=== PATIENT | male | born 1990 | race Hispanic/Latino ===

== ENCOUNTER 2018-08-25 04:00 | Inpatient (IN) | payer OTHER ==
[2018-08-25 04:03] VITALS: BMI 27.0
--- NOTE | 2018-08-25 04:21 | ED PDOC ---
Arrival/HPI - General Chief Complaint: Psychiatric Evaluation Time Seen by Provider: 08/25/18 04:17 Historian: Patient - History of Present Illness Narrative History of Present Illness (Text): 08/25/18 04:20 Gilmar Segundo is a 27 year old male, whose past medical history includes depression and bipolar disorder, who presents to the Emergency department complaining of depression. Patient states he has been feeling depressed recently and has been having thoughts of harming himself. Patient states he would jump off a building. Patient also received stitches while in [place] and noted some redness to the area. Patient denies any fever, chills, chest pain, shortness of breath, nausea, vomiting, diarrhea, urinary symptoms, back pain, neck pain, headache, dizziness, or any other complaints. Symptom Onset: Gradual Symptom Course: Unchanged Activities at Onset: Light Context: Home Past Medical History - Provider Review Nursing Documentation Reviewed: Yes - Cardiac Hx Cardiac Disorders: No Hx Hypertension: No - Pulmonary Hx Tuberculosis: No - Neurological HX Cerebrovascular Accident: No Hx Seizures: No - Hematological/Oncological Hx Cancer: No - Genitourinary/Gynecological Hx Sexually Transmitted Diseases: No - Psychiatric Hx Bipolar Disorder: Yes Hx Substance Use: No Family/Social History - Physician Review Nursing Documentation Reviewed: Yes Family/Social History: Unknown Family HX Smoking Status: Unknown If Ever Smoked Hx Alcohol Use: No Hx Substance Use: No Allergies/Home Meds Allergies/Adverse Reactions: Allergies divalproex sodium [From Depakote] Allergy (Verified 08/25/18 04:04) RASH Home Medications: Home Meds Medication Instructions Recorded Confirmed Eunola Carbonate ER Tab [Eunola 450 mg PO Q12H 08/25/18 08/25/18 Carbonate] Quetiapine Fumarate [Seroquel] 100 mg PO HS 08/25/18 08/25/18 Review of Systems - Physician Review All systems were reviewed & negative as marked: Yes - Review of Systems Constitutional: Normal Eyes: Normal ENT: Normal Respiratory: Normal. absent: SOB, Cough Cardiovascular: Normal. absent: Chest Pain Gastrointestinal: Normal. absent: Abdominal Pain, Diarrhea, Nausea, Vomiting Genitourinary Male: Normal Musculoskeletal: Normal Skin: Cellulitis Neurological: Normal Endocrine: Normal Hemo/Lymphatic: Normal Psychiatric: Depression, Suicidal Ideation Physical Exam Vital Signs Reviewed: Yes Temperature: Afebrile Blood Pressure: Normal Pulse: Regular Respiratory Rate: Normal Appearance: Positive for: Well-Appearing, Non-Toxic, Comfortable Pain Distress: None Mental Status: Positive for: Alert and Oriented X 3 - Systems Exam Head: Present: Atraumatic, Normocephalic Pupils: Present: PERRL Extroacular Muscles: Present: EOMI Conjunctiva: Present: Normal Mouth: Present: Moist Mucous Membranes Neck: Present: Normal Range of Motion Respiratory/Chest: Present: Clear to Auscultation, Good Air Exchange. No: Respiratory Distress, Accessory Muscle Use Cardiovascular: Present: Regular Rate and Rhythm, Normal S1, S2. No: Murmurs Abdomen: No: Tenderness, Distention, Peritoneal Signs Back: Present: Normal Inspection Upper Extremity: Present: Normal ROM, NORMAL PULSES, Erythema (Newly placed stitches placed in right hand with erythema around the area, no discharge, no swelling noted), Neurovascularly Intact, Capillary Refill < 2s. No: Cyanosis, Edema, Tenderness, Swelling, Temperature Abnormalties, Deformity Lower Extremity: Present: Normal Inspection. No: Edema Neurological: Present: GCS=15, CN II-XII Intact, Speech Normal Skin: Present: Warm, Dry, Normal Color. No: Rashes Psychiatric: Present: Alert, Oriented x 3, Normal Insight, Normal Concentration Medical Decision Making ED Course and Treatment: 08/25/18 04:20 Impression: 27 year old male complaining of depression and suicidal ideation. Plan: -- EKG -- Chest X-ray -- Labs, alcohol level -- Urine drug screen -- Reassess and disposition Prior Visits: Notes and results from previous visits were reviewed. Progress Notes: Reviewed EKG, NSR at [address]-segment elevations or depressions, no T-wave inversions, normal intervals. 08/25/18 05:54 Case discussed with vice president education, present in Emergency department to evaluate pt. 08/25/18 06:11 Chest X-ray reviewed, shows no acute processes. 08/25/18 07:[address] Casterjon, pending medical clearance,surgical evaluation, PES evaluation, and disposition. Pt resting comfortable, in no acute distress. - Lab Interpretations I have reviewed the lab results: Yes - RAD Interpretation Radiology Orders: 08/25/18 04:18 CHEST PORTABLE [RAD] Stat Produce Inspector: ED Physician - EKG Interpretation Interpreted by ED Physician: Yes Type: 12 lead EKG - Scribe Statement The provider has reviewed the documentation as recorded by the Jennaibe Aisha Sinha Provider Scribe Attestation: All medical record entries made by the Scribe were at my direction and personally dictated by me. I have reviewed the chart and agree that the record accurately reflects my personal performance of the history, physical exam, medical decision making, and the department course for this patient. I have also personally directed, reviewed, and agree with the discharge instructions and disposition. Disposition/Present on Arrival - Present on Arrival Any Indicators Present on Arrival: No History of DVT/PE: No History of Uncontrolled Diabetes: No Urinary Catheter: No History Surgical Site Infection Following: None - Disposition Have Diagnosis and Disposition been Completed?: No Diagnosis: Depression, Suicidal ideation Disposition Time: 07:00 Patient Problems: Current Active Problems Problem Status Onset Depression Acute Suicidal ideation Acute Condition: STABLE Forms: [employer] (Wolof)
[2018-08-25 04:39] LABS: MEAN CELL VOLUME 83.7 fl (80.0-105.0); MEAN CORPUSCULAR HEMOGLOBIN 29.2 pg (25.0-35.0); MEAN CORPUSCULAR HGB CONC 34.9 g/dl (31.0-37.0); MEAN PLATELET VOLUME 11.8 fl (7.0-11.0); RBC 5.14 10^6/uL (3.5-6.1); WHITE BLOOD COUNT 9.1 10^3/ul (4.5-11.0)
[2018-08-25 04:44] LABS: ALB/GLOB RATIO 1.5 (1.1-1.8); ALBUMIN 4.2 g/dL (3.0-4.8); ALT/SGPT 23 U/L (7-56); AST/SGOT 29 U/L (17-59); BLOOD UREA NITROGEN 13 mg/dL (7-21); CALCIUM 9.1 mg/dL (8.4-10.5); GFR NON-AFRICAN AMERICAN > 60
--- NOTE | 2018-08-25 05:58 | CP.PCM.CON ---
History of Present Illness - History of Present Illness History of Present Illness: General surgery consult note for Dr. Moreno consulted for left hand HPI: patient is a 27 yr old male with PMH depression and bipolar disorder who presented to [facility] ED for depression. During his stay it was noticed that he had stitches on his right hand posterior head, left chin and left scapular area. Patient denies any fever, chills, chest pain, shortness of breath, nausea, vomiting, diarrhea, urinary symptoms, back pain, neck pain, headache, dizziness, or any other complaints. Past Patient History - Past Social History Smoking Status: Unknown If Ever Smoked - CARDIAC Hx Cardiac Disorders: No Hx Hypertension: No - PULMONARY Hx Tuberculosis: No - NEUROLOGICAL HX Cerebrovascular Accident: No Hx Seizures: No - HEMATOLOGICAL/ONCOLOGICAL Hx Cancer: No - INTEGUMENTARY Hx Dermatological Problems: Yes - GENITOURINARY/GYNECOLOGICAL Hx Sexually Transmitted Disorders: No - PSYCHIATRIC Hx Bipolar Disorder: Yes Hx Substance Use: No - SURGICAL HISTORY Hx Surgeries: No - ANESTHESIA Hx Anesthesia: No Meds Allergies/Adverse Reactions: Allergies Allergy/AdvReac Type Severity Reaction Status Date / Time divalproex sodium Allergy RASH Verified 08/25/18 04:04 [From Depakote] - Medications Medications: Current Medications Cephalexin Monohydrate (Keflex) 500 mg PO ONCE STA; Protocol Stop: 08/25/18 05:56 Results - Labs Result Diagrams: 08/25/18 04:22 08/25/18 04:22 Labs: Laboratory Results - last 24 hr 08/25/18 08/25/18 08/25/18 04:22 04:22 04:22 WBC 9.1 D RBC 5.14 Hgb 15.0 Hct 43.0 MCV 83.7 MCH 29.2 MCHC 34.9 RDW 14.0 Plt Count 146 MPV 11.8 H Sodium 141 Potassium 3.7 Chloride 107 Carbon Dioxide 24 Anion Gap 14 BUN 13 Creatinine 1.0 Est GFR ( Amer) > 60 Est GFR (Non-Af Amer) > 60 Random Glucose 132 H Calcium 9.1 Total Bilirubin 0.6 AST 29 ALT 23 Alkaline Phosphatase 48 Total Protein 7.0 Albumin 4.2 Globulin 2.7 Albumin/Globulin Ratio 1.5 Alcohol, Quantitative < 10
[2018-08-25 06:33] LABS: URINE BILIRUBIN NEGATIVE (NEGATIVE); URINE BLOOD NEGATIVE (NEGATIVE); URINE GLUCOSE (UA) NEGATIVE (NEGATIVE); URINE LEUKOCYTE ESTERASE NEGATIVE Leu/uL (NEGATIVE); URINE PROTEIN TRACE mg/dL (<30 mg/dL)
[2018-08-25 06:45] LABS: URINE APPEARANCE CLEAR (CLEAR); URINE COLOR YELLOW (YELLOW)
[2018-08-25 06:57] LABS: URINE EPITHELIAL CELLS 0 - 2 /hpf (0-5); URINE RBC 0 - 2 /hpf (0-2); URINE WBC 0 - 2 /hpf (0-6)
[2018-08-25 07:14] LABS: BARBITURATES, UR NEGATIVE (NEGATIVE); BENZODIAZEPINES, UR NEGATIVE (NEGATIVE); OPIATES, UR NEGATIVE (NEGATIVE); PHENCYCLIDINE, UR NEGATIVE (NEGATIVE)
--- NOTE | 2018-08-25 07:26 | ED PDOC ---
Medical Decision Making ED Course and Treatment: 08/25/18 07:00 Case endorsed to me by Dr. Scott, pending medical clearance, PES evaluation, and disposition. Pt resting comfortable, in no acute distress. 08/25/18 11:06 i have personally seen and examined this patient at bedside. there is no purulence or significant swelling of the dorsum of the hand. there is mild redness along the suture line. patient states that the sutures were placed yesterday (08.24.2018). at this time i do not feel emergent hand consultation is indicated. however with the mild redness along the wound i agree that empiric antibiotics are indicated. any progression of symptoms should warrant escalation of care and consideration for hand consultation. 08/25/18 14:26 received delayed notice that patient is accepted for voluntary admission to [facility]. hand consult accepted by dr. rivera. case discussed with rn surgical pcu, will come to ED for evaluation. - Lab Interpretations Lab Results: 08/25/18 04:22 08/25/18 04:22 Lab Results 08/25/18 05:40: Urine Color Yellow, Urine Appearance Clear, Urine pH 6.0, Ur Specific [place] >= 1.030, Urine Protein Trace H, Urine Glucose (UA) Negative, Urine Ketones Negative, Urine Blood Negative, Urine Nitrate Negative, Urine Bilirubin Negative, Urine Urobilinogen 1.0 H, Ur Leukocyte Esterase Negative, Urine RBC 0 - 2, Urine WBC 0 - 2, Ur Epithelial Cells 0 - 2, Urine Other Mucus 08/25/18 05:40: Urine Opiates Screen Negative, Urine Methadone Screen Negative, Ur Barbiturates Screen Negative, Ur Phencyclidine Scrn Negative, Ur Amphetamines Screen Negative, U Benzodiazepines Scrn Negative, U Oth Cocaine Metabols Negative, U Cannabinoids Screen Negative 08/25/18 04:22: Sodium 141, Potassium 3.7, Chloride 107, Carbon Dioxide 24, Anion Gap 14, BUN 13, Creatinine 1.0, Est GFR ( Amer) > 60, Est GFR (Non- Af Amer) > 60, Random Glucose 132 H, Calcium 9.1, Total Bilirubin 0.6, AST 29, ALT 23, Alkaline Phosphatase 48, Total Protein 7.0, Albumin 4.2, Globulin 2.7, Albumin/Globulin Ratio 1.5 08/25/18 04:22: WBC 9.1 D, RBC 5.14, Hgb 15.0, Hct 43.0, MCV 83.7, MCH 29.2, MCHC 34.9, RDW 14.0, Plt Count 146, MPV 11.8 H 08/25/18 04:22: Alcohol, Quantitative < 10 - RAD Interpretation Narrative RAD Interpretations (Text): 08/25/18 09:33 XR Right hand FINDINGS: BONES: Bone alignment and mineralization are normal. There is no acute displaced fracture or bone destruction. JOINTS: Normal. No osteoarthritic changes. SOFT TISSUES: Normal. OTHER FINDINGS: None. IMPRESSION: No acute fracture, dislocation or bone destruction. Radiology Orders: 08/25/18 04:18 CHEST PORTABLE [RAD] Stat 08/25/18 05:31 HAND RIGHT 3 VIEWS [RAD] Stat - Medication Orders Current Medication Orders: Discontinued Medications Cephalexin Monohydrate (Keflex) 500 mg PO ONCE STA; Protocol Stop: 08/25/18 05:56 Last Admin: 08/25/18 06:52 Dose: 500 mg - Scribe Statement The provider has reviewed the documentation as recorded by the Qing Nazario Provider Scribe Attestation: All medical record entries made by the Qing were at my direction and personally dictated by me. I have reviewed the chart and agree that the record accurately reflects my personal performance of the history, physical exam, medical decision making, and the department course for this patient. I have also personally directed, reviewed, and agree with the discharge instructions and disposition. Disposition/Present on Arrival - Present on Arrival Any Indicators Present on Arrival: No History of DVT/PE: No History of Uncontrolled Diabetes: No Urinary Catheter: No History of Decub. Ulcer: No History Surgical Site Infection Following: None - Disposition Have Diagnosis and Disposition been Completed?: Yes Diagnosis: Depression, Suicidal ideation, Bipolar disorder Disposition: HOSPITALIZED Disposition Time: 14:27 Patient Plan: Admission Patient Problems: Current Active Problems Problem Status Onset Depression Acute Suicidal ideation Acute Condition: STABLE Forms: [employer] ([place]ralt[place])
[2018-08-25 07:48] VITALS: O2SAT 98
--- NOTE | 2018-08-25 08:25 | RAD ---
Date of service: 08/25/2018 HISTORY: medical clearance COMPARISON: 03/23/2016 FINDINGS: LUNGS: No active pulmonary disease. PLEURA: No significant pleural effusion identified, no pneumothorax apparent. CARDIOVASCULAR: Normal. OSSEOUS STRUCTURES: No significant abnormalities. VISUALIZED UPPER ABDOMEN: Normal. OTHER FINDINGS: None. IMPRESSION: No active disease.
--- NOTE | 2018-08-25 09:14 | RAD ---
PROCEDURE: Right Hand Radiographs. HISTORY: Hand wound COMPARISON: None. FINDINGS: BONES: Bone alignment and mineralization are normal. There is no acute displaced fracture or bone destruction. JOINTS: Normal. No osteoarthritic changes. SOFT TISSUES: Normal. OTHER FINDINGS: None. IMPRESSION: No acute fracture, dislocation or bone destruction.
--- NOTE | 2018-08-25 11:49 | CARD ---
APPROVED REPORT Date of service: 08/25/2018 EKG Measurement Heart [id number] <Conclusion> Normal sinus rhythm Normal ECG
[2018-08-25] MEDS ORDERED: Vancomycin 1gm in NS 250ml 1 GM/250 ML BAG IVPB SCH (16:15)
--- NOTE | 2018-08-25 16:44 | CP.PCM.CON ---
History of Present Illness - History of Present Illness History of Present Illness: Consult note for Hand Surgery for Dr. Sweeney CC: Hand laceration evaluation HPI: Mr. Villarreal is a 27 y/o male with PMH of depression and bipolar disorder presenting to the ER for suicidal ideation. Hand surgery was consulted for ranjan villatoro of hand laceration. Patient states that he had the laceration from a glass edge yesterday for which he received stitches, done at [facility]. He indicates that he received TdAP booster, but denies receiving any antibiotics. He admits to having pain along his fingers and laceration when he closes his hand. He denies numbness, tingling, loss of sensation, and weakness in his the fingers. He also denies fevers, fatigue, chills, shortness of breath, nausea, and vomiting. SocHx: denies alcohol and illicit drug use. unknown smoking hx. PMHx: depression, bipolar Allergies: Divalproex sodium Hosptilizations: Stitches in [place] 08/24/18 FamHx: non-contributory Review of Systems - Review of Systems Review of Systems: 10 pt ROS negative except as stated in HPI Past Patient History - Past Social History Smoking Status: Unknown If Ever Smoked - CARDIAC Hx Cardiac Disorders: No Hx Hypertension: No - PULMONARY Hx Tuberculosis: No - NEUROLOGICAL HX Cerebrovascular Accident: No Hx Seizures: No - HEMATOLOGICAL/ONCOLOGICAL Hx Cancer: No - INTEGUMENTARY Hx Dermatological Problems: Yes - GENITOURINARY/GYNECOLOGICAL Hx Sexually Transmitted Disorders: No - PSYCHIATRIC Hx Substance Use: No - SURGICAL HISTORY Hx Surgeries: No - ANESTHESIA Hx Anesthesia: No Meds Allergies/Adverse Reactions: Allergies Allergy/AdvReac Type Severity Reaction Status Date / Time divalproex sodium Allergy RASH Verified 08/25/18 04:04 [From Depakote] - Medications Medications: Current Medications Cephalexin Monohydrate (Keflex) 500 mg PO QID ROLAND; Protocol Last Admin: 08/25/18 11:53 Dose: 500 mg Ampicillin Sodium/Sulbactam (Sodium 3 gm/ Sodium Chloride) 100 mls @ 200 mls/hr IVPB Q6 ROLAND; Protocol Vancomycin HCl (Vancomycin 1gm) 1 gm in 250 mls @ 167 mls/hr IVPB Q12H ROLAND; Protocol Physical Exam - Constitutional Appears: No Acute Distress - Head Exam Head Exam: NORMOCEPHALIC - Eye Exam Eye Exam: EOMI, Normal appearance - ENT Exam ENT Exam: Mucous Membranes Moist - Cardiovascular Exam Cardiovascular Exam: +S1, +S2 - Neurological Exam Neurological exam: Alert - Skin Skin Exam: Warm Additional comments: x5 stitches on dorsal aspect of hand with some surrounding erythema Results - Vital Signs Recent Vital Signs: Last Vital Signs Temp 97.8 F 08/25/18 15:14 Pulse 81 08/25/18 15:14 Resp 18 08/25/18 15:14 BP 118/61 08/25/18 15:14 Pulse Ox 98 08/25/18 15:14 - Labs Result Diagrams: 08/25/18 04:22 08/25/18 04:22 Labs: Laboratory Results - last 24 hr 08/25/18 08/25/18 08/25/18 04:22 04:22 04:22 WBC 9.1 D RBC 5.14 Hgb 15.0 Hct 43.0 MCV 83.7 MCH 29.2 MCHC 34.9 RDW 14.0 Plt Count 146 MPV 11.8 H Sodium 141 Potassium 3.7 Chloride 107 Carbon Dioxide 24 Anion Gap 14 BUN 13 Creatinine 1.0 Est GFR ( Amer) > 60 Est GFR (Non-Af Amer) > 60 Random Glucose 132 H Calcium 9.1 Total Bilirubin 0.6 AST 29 ALT 23 Alkaline Phosphatase 48 Total Protein 7.0 Albumin 4.2 Globulin 2.7 Albumin/Globulin Ratio 1.5 Urine Color Urine Appearance Urine pH Ur Specific [place] Urine Protein Urine Glucose (UA) Urine Ketones Urine Blood Urine Nitrate Urine Bilirubin Urine Urobilinogen Ur Leukocyte Esterase Urine RBC Urine WBC Ur Epithelial Cells Urine Other Urine Opiates Screen Urine Methadone Screen Ur Barbiturates Screen Ur Phencyclidine Scrn Ur Amphetamines Screen U Benzodiazepines Scrn U Oth Cocaine Metabols U Cannabinoids Screen Alcohol, Quantitative < 10 08/25/18 08/25/18 05:40 05:40 WBC RBC Hgb Hct MCV MCH MCHC RDW Plt Count MPV Sodium Potassium Chloride Carbon Dioxide Anion Gap BUN Creatinine Est GFR ( Amer) Est GFR (Non-Af Amer) Random Glucose Calcium Total Bilirubin AST ALT Alkaline Phosphatase Total Protein Albumin Globulin Albumin/Globulin Ratio Urine Color Yellow Urine Appearance Clear Urine pH 6.0 Ur Specific [place] >= 1.030 Urine Protein Trace H Urine Glucose (UA) Negative Urine Ketones Negative Urine Blood Negative Urine Nitrate Negative Urine Bilirubin Negative Urine Urobilinogen 1.0 H Ur Leukocyte Esterase Negative Urine RBC 0 - 2 Urine WBC 0 - 2 Ur Epithelial Cells 0 - 2 Urine Other Mucus Urine Opiates Screen Negative Urine Methadone Screen Negative Ur Barbiturates Screen Negative Ur Phencyclidine Scrn Negative Ur Amphetamines Screen Negative U Benzodiazepines Scrn Negative U Oth Cocaine Metabols Negative U Cannabinoids Screen Negative Alcohol, Quantitative Assessment & Plan - Assessment and Plan (Free Text) Assessment: 27M with R hand laceration Plan: -Vanco -Unasyn -If erythema does not improve after 24-48 hours will remove some stitches and will pack wound -Will continue to monitor -D/w Dr. Patel Sepulveda PGY3
[2018-08-25] MEDS: Amoxicillin-Clav 875-125 mg Tab PO SCH (18:51)
[2018-08-25] MEDS ORDERED: DiphenhydrAMINE 50 mg/ml Inj IM PRN (19:06)
--- NOTE | 2018-08-25 19:28 | PCM.BM ---
<Lashawn Angeles - Last Filed: 08/25/18 19:25> Treatment Plan Problems - Problems identified on initial assessmt High suicide risk Date Initiated: 08/25/18 Time Initiated: 19:26 Assessment reference: NA Status: Active feeling of hopelessness Date Initiated: 08/25/18 Time Initiated: 19:27 Assessment reference: NA Status: Active feeling of wortlessness Date Initiated: 08/25/18 Time Initiated: 19:28 Status: Active social isoaltion Date Initiated: 08/25/18 Time Initiated: 19:29 Assessment reference: NA Status: Active Treatment assets and liabiliti Patient Assests: ADL independent, negotiates basic needs Patient Liabilities: financial problems, poor support system, relationship conflicts - Milieu Protocol Maintain good personal hygiene: every shift Encourage regular showers, every shift Remind patient to perform daily oral care, every shift Assist patient to perform ADL's Conduct patient checks and document Observation sheet: Q15 minutes Maintain personal safety: every shift Educate patient to report safety concerns to staff, every shift Monitor environment for contraband/sharps Medication safety: Monitor for expected outcome, potential side effects: every shift, Assess barriers to learning: every shift, Assess readiness for medication education: every shift Discharge/Continuing Care - Education Needs Education Needs: Patient Medication, Patient Diagnosis/Disease Process, Patient Coping Skills, Patient Anger Management skills, Patient Community resources, Patient Personal Hygiene/Grooming - Discharge Discharge Criteria: Tolerates medication w/o severe side effects, Free of Suicidal thoughts, Free of agitation, Normal sleep pattern, Ability to care for self <Carlotta Campbell - Last Filed: 08/26/18 15:46> - Diagnosis (1) Bipolar disorder Status: Acute Interventions: 08/26/18 15:46 Psychoeducation Psychopharmacology/adjustment of medications as needed/ monitoring possible side effects Monitor blood level of mood stabilizers Evaluate pt on daily basis Compliance with medications and follow up appointments Suicide and homicide risk assessment and prevention, coping strategies, safety plan Relapse prevention Reduction of symptoms Improve functional status Family involvement As outpatient: cognitive behavioral therapy <Laure Renee - Last Filed: 08/27/18 12:10> Family Contact Family involvement: Family/SO is involved Family contact: Patient agrees to contact Family contact name: Gilmar Kruse,father Family contacted how many times per week?: 2 <Yesika Mtz - Last Filed: 08/27/18 12:11>
[2018-08-25] MEDS: Lithium Carbonate ER Tab 450 MG PO SCH (23:13)
[2018-08-26] MEDS: Amoxicillin-Clav 875-125 mg Tab PO SCH ×2 (06:35→18:42)
[2018-08-26 07:10] VITALS: RESP 20
[2018-08-26] MEDS: Lithium Carbonate ER Tab 450 MG PO SCH ×2 (10:07→21:09)
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
[2018-08-27] MEDS: Amoxicillin-Clav 875-125 mg Tab PO SCH (06:11)
[2018-08-27] MEDS: Lithium Carbonate ER Tab 450 MG PO SCH ×2 (09:22→21:38)
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
[2018-08-28] MEDS: Amoxicillin-Clav 875-125 mg Tab PO SCH ×2 (07:14→17:35)
[2018-08-28] MEDS: Lithium Carbonate ER Tab 450 MG PO SCH ×2 (10:03→21:21)
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
--- NOTE | 2018-08-28 15:56 | CP.PCM.PN ---
Addendum entered and electronically signed by Jacy Wells DO 08/29/18 06:53: Addendum: patient on oral antibiotics. Cont for full course of 7 days. will remove sutures in 10 days if patient remains in hospital. AKWhite PGY4 Original Note: Subjective - Date & Time of Evaluation Date of Evaluation: 08/28/18 Time of Evaluation: 15:52 - Subjective Subjective: Surgery progress note for Dr. Sweeney Patient seen and examined this morning. Patient states that he no longer has pain on his right hand and his swelling has significantly improved. He is able to fully open and close his right hand without any difficulties or pain. He denies fevers, chills, shortness of breath, chest pain, abdominal pain, or any other complaints. Objective - Vital Signs/Intake and Output Vital Signs (last 24 hours): Temp Pulse Resp BP Pulse Ox 97.9 F 72 20 100/60 98 08/28/18 07:18 08/28/18 07:18 08/28/18 07:18 08/28/18 07:18 08/25/18 15:14 - Medications Medications: Current Medications Amoxicillin/Clavulanate Potassium (Augmentin 875 Mg-125 Mg Tab) 1 tab PO Q12 ROLAND; Protocol Last Admin: 08/28/18 07:14 Dose: 1 tab Clindamycin HCl (Cleocin) 150 mg PO Q6 ROLAND; Protocol Last Admin: 08/28/18 13:37 Dose: 150 mg Clonazepam (Klonopin) 0.5 mg PO BID ROLAND; Protocol Diphenhydramine HCl (Benadryl) 50 mg PO Q6 PRN PRN Reason: Insomnia Last Admin: 08/26/18 21:09 Dose: 50 mg Diphenhydramine HCl (Benadryl) 50 mg IM Q6H PRN PRN Reason: Allergy symptoms Haloperidol (Haldol) 5 mg PO Q6 PRN; Protocol PRN Reason: Agitation Haloperidol Lactate (Haldol) 5 mg IM Q6 PRN; Protocol PRN Reason: Agitation [place] Carbonate ([place] Carbonate) 450 mg PO AMHS ROLAND Last Admin: 08/28/18 10:03 Dose: 450 mg Lorazepam (Ativan) 2 mg PO Q6 PRN; Protocol PRN Reason: Anxiety Lorazepam (Ativan) 2 mg IM Q6H PRN; Protocol PRN Reason: Anxiety Quetiapine Fumarate (Seroquel) 200 mg PO HS ROLAND; Protocol Last Admin: 08/27/18 21:38 Dose: 200 mg Quetiapine Fumarate (Seroquel) 200 mg PO HS ROLAND; Protocol Zolpidem Tartrate (Ambien) 5 mg PO HS PRN; Protocol PRN Reason: Insomnia Last Admin: 08/27/18 21:38 Dose: 5 mg - Labs Labs: 08/25/18 04:22 08/25/18 04:22 - Constitutional Appears: Well, Non-toxic, No Acute Distress - Head Exam Head Exam: ATRAUMATIC, NORMOCEPHALIC - Eye Exam Eye Exam: Normal appearance - ENT Exam ENT Exam: Mucous Membranes Moist - Respiratory Exam Respiratory Exam: NORMAL BREATHING PATTERN. absent: Respiratory Distress - Cardiovascular Exam Cardiovascular Exam: RRR - GI/Abdominal Exam GI & Abdominal Exam: Soft. absent: Distended, Tenderness - Extremities Exam Additional comments: Stitches on right hand C/D/I, no bleeding or discharge noted. Sensations intact. Muscle strength 5/5 in all extremities. - Neurological Exam Neurological Exam: Alert, Awake, Oriented x3 - Psychiatric Exam Psychiatric exam: Normal Affect, Normal Mood - Skin Skin Exam: Dry, Intact, Normal Color, Warm Assessment and Plan - Assessment and Plan (Free Text) Assessment: Patient is a 27 year old male with right hand laceration. Plan: - Continue IV antibiotics - Remove sutures in 7-10 days - Will continue to monitor Case discussed with Dr. Patel Estrada PGY-1
[2018-08-29] MEDS: Amoxicillin-Clav 875-125 mg Tab PO SCH ×2 (09:06→17:42)
[2018-08-29] MEDS: Lithium Carbonate ER Tab 450 MG PO SCH ×2 (10:56→21:25)
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
[2018-08-30] MEDS: Amoxicillin-Clav 875-125 mg Tab PO SCH ×2 (06:12→19:11)
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
[2018-08-30] MEDS: Lithium Carbonate ER Tab 450 MG PO SCH ×2 (11:29→21:54)
[2018-08-31] MEDS: Lithium Carbonate ER Tab 450 MG PO SCH ×2 (09:54→22:11)
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
[2018-09-01] MEDS: Lithium Carbonate ER Tab 450 MG PO SCH ×2 (09:39→22:05)
--- NOTE | 2018-09-01 11:02 | PCM.PYCHPN ---
Psychiatric Progress Note - Psychiatric Progress Note Patient seen today, length of contact: 30 minutes Problems Identified/Issues Discussed: I reviewed assessment and recent notes. I interviewed patient in the dayroom. He is oriented x3 and indicates that he feels "all right". Denies any new concerns, tolerating medications and slept well. His affect is neutral and thought process is coherent. Patient has been in better control on the unit, less labile and less fractious. Staff notes indicate that he has been attending groups and there were no behavioral issues overnight. Diagnostic Results: Bipolar disorder Rule out adjustment disorder with depressed and anxious mood Medication Change: No ( ) Medical Record Reviewed: Yes Mental Status Examination - Cognitive Function Orientation: Person, Place, Situation, Time Memory: Intact Attention: Poor (some improvement) Concentration: Poor Association: Loose Fund of Knowledge: WNL - Mood Mood: Depressed ("I feel little better") - Affect Affect: Other (labile--improving) - Speech Speech: Appropriate - Formal Thought Process Formal Thought Process: Circumstantial (more focused today) - Suicidal Ideation Suicidal Ideation: No - Homicidal Ideation Homicidal Ideation: No Goal/Treatment Plan - Goal/Treatment Plan Need for Continued Stay: Remain at risks for inpatient hospitalization, Severe depression anxiety, Discharge may exacerbated symptoms, Severe functional impairment Progress Toward Problem(s) and Goals/Treatment Plan: * c/w current tx and plan * No new lab results thus far * Vitals reviewed and noted below: Selected Entries 08/30/18 08/31/18 07:05 15:39 Temperature 97.7 F Pulse Rate 78 80 Respiratory 20 Rate Blood Pressure 98/62 L 124/76 Estimated Date of D/C: 09/02/18
[2018-09-02] MEDS: Lithium Carbonate ER Tab 450 MG PO SCH ×2 (09:03→22:21)
[2018-09-03 07:22] VITALS: BP 123/88; PULSE 82; TEMP 97.5
--- NOTE | 2018-09-03 07:45 | PN ---
DATE: 09/02/[address] Carlotta Campbell. SUBJECTIVE: The patient is a 27-year-old somewhat disheveled white male, who looks older than his stated age, who is diagnosed with bipolar disorder, rule out adjustment disorder with mixed features of depression and anxiety. He appears to be somewhat flat in affect, but speaks in a goal-directed manner, albeit quietly. He reportedly had been emotionally labile early in this hospital course. Nursing considers him still to be needing redirection. Denies auditory or visual hallucinations or suicidal or homicidal ideation. He is compliant with his medication, which consists of Klonopin 1 mg b.i.d., lithium 450 mg a.m. and at bedtime, Seroquel 200 mg a.m. and at bedtime. His lithium level on 09/01/2018 was 0.3. His laboratory results were reviewed. His vital signs are within normal limits. Maulik Andrew MD/ PhD
[2018-09-03] MEDS: Lithium Carbonate ER Tab 450 MG PO SCH (09:25)
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
== END 2018-09-03 13:12 | disposition home or self-care (01) | DRG 430 ==
LOC: ED 04:00 → ERH 14:23 → PSYC 15:21
PROVIDERS: ADMIT Psychiatry & Neurology Psychiatry; ATTEND Psychiatry & Neurology Psychiatry
DX: F31.9 Bipolar disorder, unspecified (principal); R45.851 Suicidal ideations; S61.411D Laceration without foreign body of right hand, subsequent encounter; W25.XXXD Contact with sharp glass, subsequent encounter; Z59.0 Homelessness; Z91.14 Patient's other noncompliance with medication regimen